=== PATIENT | male | born 1965 | race Caucasian/White ===

== ENCOUNTER 2016-08-19 22:10 | Emergency (ER) | payer OTHER ==
[~2016-08-19] VITALS: Ht 188 cm; Wt 118.2 kg
[~2016-08-19 22:10] MED LIST: ASA325 PO; ATRV10T PO; GABA300S PO; HUMALOG; INSU100V7 SUBQ; OXC20TCR PO; ZES20T PO
[2016-08-19 22:19] VITALS: BP 185/78; PULSE 80; RESP 18; O2SAT 99
--- NOTE | 2016-08-19 22:43 | ED.REPORT ---
HPI-Neck Pain Free Text HPI Notes Aug 19, 2016 ED Provider: Adriana Raines MD The patient is a 51 year old male with history of HTN and diabetes (insulin dependent) who presents to the ED complaining of spasming neck pain after having lower back surgery earlier today at [facility]. He states that his pain started as a tightness in his low back just above the surgical site which radiated up to his neck. He reports relief when his neck is rubbed and that his pain is exacerbated by movement. He denies fever, nausea, vomiting, cough, shortness of breath, or any other symptoms at this time. Nursing Notes Stated Complaint: NECK SPASMS Chief Complaint: Back Pain or Injury Nursing Notes Reviewed: Yes Allergies: Coded Allergies: Amoxicillin (Verified Allergy, Severe, N/V, 07/01/13) Uncoded Allergies: AUMENTIN (Allergy, Severe, N/V, 07/01/13) Scheduled Atorvastatin-Expunged Drug, Do Not Renew! (Atorvastatin-Expunged Drug, Do Not Renew!) 10 Mg Tablet 20 MG PO DAILY For Cholesterol Management. Lisinopril-Expunged Drug, Do Not Renew! (Lisinopril-Expunged Drug, Do Not Renew! ) 20 Mg Tablet 20 MG PO DAILY Methocarbamol (Robaxin) 500 Mg Tablet 500 MG PO TID oxyCODONE-Expunged, Do Not Renew! (OxyCONTIN-Expunged, Do Not Renew!) 20 Mg Tab.sr.12h 20 MG PO BID DO NOT CRUSH OR CHEW Miscellaneous Medications ([Humalog]) Aspirin-Expunged Drug, Do Not Renew! (Aspirin-Expunged Drug, Do Not Renew!) 325 Mg Tablet 325 MG PO Gabapentin-Expunged Drug, Do Not Renew! (Gabapentin-Expunged Drug, Do Not Renew! ) 300 Mg/6 Ml Solution 300 MG PO Insulin Glargine-Expunged Drug, Do Not Renew! (Lantus-Expunged Drug, Do Not Renew!) 100 Unit/1 Ml Vial 0 SUBQ For Diabetes Management. General Time Seen by Provider: 22:50 Chief Complaint Neck pain Hx Obtained From: Patient Arrived By: Walk-in Sudden in Onset?: No Onset Occurred: 5 - 8 hours ago Symptom Duration: Since onset Progression Since Onset: Gradually worsening Quality: Painful Severity: Current: Moderate Severity: Maximum: Severe Recent Healthcare: Recent doctor visit, Recent hospitalization, Previous surgery Similar Sx Previous: No Past Medical History Past Medical History Diabetes (insulin dependent) Hypertension Hypercholesterolemia Past Surgical History L4-L5 surgery Smoking History Unknown if Ever Smoker Ambulatory Status Independent Review of Systems Constitutional: Denies: Chills, Fever Respiratory: Denies: Non-productive cough, Shortness of breath, Wheezing Cardiovascular: Denies: Chest pain, Syncope GI: Denies: Anorexia, Nausea, Vomiting Musculoskeletal: Reports: Back pain (secondary to surgery), Neck pain, Denies: Extremity pain, Joint pain Complete sys rev & neg: except as marked. Physical Exam Initial Vital Signs Vital Signs (First) Date Time Temp Pulse Resp B/P Pulse Ox O2 Delivery O2 Flow Rate FiO2 08/19/16 22:19 36.8 80 18 185/78 99 Room Air Initial VS: Reviewed General/Constitutional: Awake, Alert Distress / Hydration: Positive: Distress mild Neck: Atraumatic Severely limited ROM secondary to pain Paraspinal tenderness to palpation about bilateral trapezius Neurologic: Oriented X3, Speech NL, No motor deficits, No sensory deficits 5/5 strength in all four extremities Back: Dressed post-surgical site just right of lumbar paraspinal, clean and dry with no surrounding erythema Re-Eval/Medical Decision Med Decision/Clinical Course 51-year-old male with past medical history of hypertension, and diabetes status post lumbar surgery earlier today here with neck pain. Differential diagnosis includes but is not limited to muscle spasm versus drug seeking behavior versus fracture versus dislocation. Patient has no midline C-spine tenderness to palpation. He was likely prone during his surgery today, which I believe exacerbated his chronic neck pain. He has no numbness or weakness, and I do not feel he requires any imaging. I have given him Valium in the emergency department for his pain, along with a prescription for Robaxin to start taking tomorrow. He has a prescription for pain medication from his surgery today. He is aware and amenable to discharge at this time with follow-up with his primary care physician, and has been given very strict return precautions. Source of Hx: Old records Re-Evaluation/Progress : Time of Eval: 00:03 Re-Evaluation/Progress Note: Rechecked the patient who reports that he has started feeling better. Discussed diagnosis and plan for discahrge. The patient understands and agrees to the plan. Follow-up instructions and RTER warnings given. All questions addressed. Counseled Regarding: Diagnosis, Need for follow-up, When/why to return to ED Discharge & Departure Primary Impression: Neck muscle spasm Disposition: Home Discharge Condition All VS Reviewed: Yes Condition: Stable Patient Instructions: Spasmodic Torticollis (ED) Additional Instructions: Your emergency department evaluation today included a consultation and physical examination. Your surgical site appears to be well dressed and there are no signs of infection. I have give you Valium in the emergency department to help relax the muscles in your neck. I have prescribed you the muscle relaxant Robaxin for you to use at home, please use this as directed. Follow-up with your primary care doctor if your symptoms have not started to improve in the next week. Return to the emergency department if you develop a fever, lose control of your bowels/bladder, develop weakness or numbness in your legs, or if you develop any other new/concerning symptoms. Thank you for coming in tonight, I hope you start to feel better soon. Referrals: Rodrigo Grigsby MD (PCP) ED Scribe Statement Portions of this note were transcribed by Jed Palomino. I, Dr. Raines, personally performed the history, physical exam, and medical decision-making; I reviewed and confirmed the accuracy of the information in the transcribed note. Signed by: Ruthie Hoff, 08/20/16, 00:06. copies to: Rodrigo Grigsby MD, Rebecca A MD Aug 19, 2016 22:43 JED PALOMINO Aug 19, 2016 22:59
[2016-08-20] MEDS ORDERED: METH500T PO (00:06)
[2016-08-20 00:44] VITALS: BP 166/79; PULSE 79; RESP 18; O2SAT 97
== END 2016-08-20 00:42 | disposition home or self-care (01) ==
LOC: SED 22:10
DX: M62.838 Other muscle spasm (principal); I10 Essential (primary) hypertension; E10.9 Type 1 diabetes mellitus without complications; Z98.890 Other specified postprocedural states; Z79.4 Long term (current) use of insulin; Z88.1 Allergy status to other antibiotic agents